=== PATIENT | male | born 1970 | race Caucasian/White ===

== ENCOUNTER → 2019-09-15 | Outpatient (CLI) | payer BC | LOC: HYPER 08:40 | DX: T87.89 Other complications of amputation stump (principal); S80.12XA Contusion of left lower leg, initial encounter; L89.893 Pressure ulcer of other site, stage 3; L02.416 Cutaneous abscess of left lower limb; L84 Corns and callosities; F17.200 Nicotine dependence, unspecified, uncomplicated; X58.XXXA Exposure to other specified factors, initial encounter; Y93.89 Activity, other specified; Y92.89 Other specified places as the place of occurrence of the external cause; Y99.8 Other external cause status; Y83.5 Amputation of limb(s) as the cause of abnormal reaction of the patient, or of later complication, without mention of misadventure at the time of the procedure ==

== ENCOUNTER → 2019-09-22 | Outpatient (CLI) | payer BC | LOC: HYPER 08:55 | DX: T87.89 Other complications of amputation stump (principal); L89.893 Pressure ulcer of other site, stage 3; S80.212D Abrasion, left knee, subsequent encounter; S80.12XD Contusion of left lower leg, subsequent encounter; L02.416 Cutaneous abscess of left lower limb; L84 Corns and callosities; F17.290 Nicotine dependence, other tobacco product, uncomplicated; Z89.612 Acquired absence of left leg above knee; Y83.5 Amputation of limb(s) as the cause of abnormal reaction of the patient, or of later complication, without mention of misadventure at the time of the procedure; X58.XXXD Exposure to other specified factors, subsequent encounter ==